=== PATIENT | male | born 1960 | race African-American/Black ===

== ENCOUNTER 2024-06-26 08:45 | Emergency (ER) | payer OTHER, MEDICAID ==
[~2024-06-26] VITALS: Ht 185.4 cm; Wt 88.6 kg
[2024-06-26 08:54] VITALS: O2SAT 100
[2024-06-26 09:14] LABS: HEMATOCRIT. 26.4 % (42.0-52.0); HEMOGLOBIN. 7.6 g/dL (14.0-18.0); MEAN CORPUSCULAR HEMOGLOBIN 15.8 pg (28.0-32.0); MEAN CORPUSCULAR HGB CONC 28.7 g/dL (31.0-37.0); MEAN CORPUSCULAR VOLUME 55.1 fL (80.0-94.0); RED BLOOD CELL COUNT 4.79 mill/uL (4.7-6.1); WHITE BLOOD COUNT 7.8 x1000/uL (4.5-11.0)
[2024-06-26 09:17] LABS: CHLORIDE 105 mEq/L (98-107); POTASSIUM 2.9 mEq/L (3.5-5.1); SODIUM 141 mEq/L (136-145)
[2024-06-26 09:18] LABS: CALCIUM 9.3 mg/dL (8.7-10.4); CARBON DIOXIDE 24 mEq/L (21-32); DIFFERENTIAL COMMENT 1
[2024-06-26 09:23] LABS: GLUCOSE 161 mg/dL (70-105); UREA NITROGEN BLOOD 11 mg/dL (9-23)
[2024-06-26 10:03] LABS: NUCLEATED RED BLOOD CELLS 2 /100 WBC
[2024-06-26 10:06] LABS: ANISOCYTOSIS 3+; HYPOCHROMASIA 2+; MICROCYTOSIS 4+
[2024-06-26 10:10] LABS: MEAN PLATELET VOLUME 9.2 fl (7.4-10.4); PLATELET ESTIMATE NORMAL
[2024-06-26 10:11] LABS: PLATELET 171 x1000/uL (130-400)
[2024-06-26 11:16] LABS: CLARITY URINE CLEAR (CLEAR); COLOR URINE YELLOW (YELLOW); GLUCOSE URINE 2+ (NEGATIVE); KETONES URINE TRACE (NEGATIVE); LEUKOCYTE ESTERASE URINE NEGATIVE (NEGATIVE); NITRITE URINE NEGATIVE (NEGATIVE); OCCULT BLOOD URINE NEGATIVE (NEGATIVE); PH URINE 5.5 (4.5-8.0); PROTEIN URINE 1+ (NEGATIVE); SPECIFIC GRAVITY URINE 1.025 (1.005-1.030)
[2024-06-26 11:24] LABS: BACTERIA URINE FEW; RBC URINE NONE SEEN /hpf (0-2); SQUAMOUS EPITHELIAL CELL URINE NONE SEEN /lpf (RARE/1+); YEAST URINE NONE SEEN
[2024-06-26] MEDS: KCL 20MEQ/100ML PREMIX 100 ML IV ONE (11:30)
[2024-06-26] MEDS: POTASSIUM CHLORIDE 20MEQ/PACKET PO ONE (12:14)
[2024-06-26] MEDS: MAGNESIUM 2 G PREMIX 50 ML IV ONE (12:16)
[2024-06-26 15:04] VITALS: BP 133/88; PULSE 83; RESP 18; TEMP 36.6; O2SAT 100
== END 2024-06-26 15:45 | disposition short-term general hospital (02) ==
LOC: ER 08:45 → CANBEDREQ 15:36 → ER 15:45
DX: D64.9 Anemia, unspecified (principal); E87.6 Hypokalemia; E11.9 Type 2 diabetes mellitus without complications; I10 Essential (primary) hypertension
CPT/HCPCS: 99291; 96365; 96366; 80048; 81003; 85025; 86850; 86900; 86901; 36415; 93005; 96368; J3475; J3480; 96367